=== PATIENT | male | born 1965 | race Caucasian/White ===

== ENCOUNTER → 2018-12-30 | Outpatient (CLI) | payer OTHER ==
--- NOTE | 2018-12-30 20:44 | CONS ---
CONSULTATION DATE OF SERVICE: 12/30/2018 This patient is a 53-year-old gentleman who has been [facility]uated [facility] for obstructive sleep apnea-hypopnea syndrome. HISTORY OF PRESENT ILLNESS/SLEEP-WAKE EVALUATION: The patient has history of extremely severe obstructive sleep apnea-hypopnea syndrome for about 10 years with apnea-hypopnea index 91.6 with extremely severe oxygen desaturation to 31%. Since that time, the patient has been on treatment with CPAP. The last time he was in our sleep clinic was in 2009. Since that time, his weight has significantly increased from 257 pounds to 279 pounds. His sleep schedule is from 10 p.m. until 5:30 or 6:30 a.m. He does have problems falling asleep. No TV in bedroom. At present, while he is using CPAP he snores and still has awakenings from sleep. He has episodes of restless legs and heartburn. During the day he may feel sleepiness. [place] Sleepiness Scale is increased at 10. He has episodes of irritability, depression, anxiety, sexual dysfunction, problems with memory. PAST MEDICAL HISTORY: Past medical history is positive for: 1. Exercise-induced asthma. 2. Back problems. 3. Diabetes mellitus. 4. Hypertension. 5. Periodic limb movements. MEDICATIONS: 1. Lisinopril. 2. . 3. Medications for diabetes. SOCIAL HISTORY: Negative for smoking or using alcohol at present. REVIEW OF SYSTEMS: Awakenings from sleep, tiredness and sleepiness during the day, even while using his CPAP. PHYSICAL EXAMINATION: GENERAL: A pleasant gentleman without distress. VITAL SIGNS: BP 147/101, HR 74, RR 16, height 5 feet 10 inches, weight 279, body mass index 40, temperature 97.4, oxygen saturation at room air 96% HEENT: PERRLA, EOMI. Evaluation of oropharynx showed tongue protrudes midline. Extremely low position of soft palate. Mallampati IV. NECK: Supple. No JVD. Thyroid is not palpable. Wide neck; 19-1/2 inches in circumference. LUNGS: Clear to percussion and to auscultation. Good air exchange. No wheezing or rhonchi. HEART: S1, S2 regular. No murmurs, gallops or rubs. ABDOMEN: Slightly obese. EXTREMITIES: No clubbing or cyanosis. TECHNICIAN ANATOMIC PATHOLOGY: Awake, alert, and oriented X3. Cranial nerves 2 to 7 intact. There is no fasciculation or atrophy. noted. No focal deficits observed. IMPRESSION: 1. Extremely severe obstructive sleep apnea-hypopnea syndrome with apnea-hypopnea index 91.6 and oxygen desaturation to 31%, documented in 2009. Last sleep study was 10 years ago. Patient's weight has increased by 22 pounds since previous sleep study. At present he is on treatment with CPAP but has snoring while using CPAP and tiredness and sleepiness during the day. He also has an extremely low position of soft palate, wide neck, obesity; obstructive sleep apnea-hypopnea syndrome. 2. Obesity; body mass index 40. 3. History of periodic limb movements. 4. History of exercise-induced asthma. 5. Back problems. 6. Diabetes mellitus. 7. Hypertension. PLAN: 1. Repeat CPAP titration for evaluation of effective CPAP pressure and fitting of the mask. 2. Aggressive losing-weight program. 3. Sleep hygiene with regular time in bed for 7-1/2 to 8 hours. 4. No driving if feeling any sleepiness. Thank you very much for allowing me to participate in the management of your patient. Sincerely, Dimas Armijo MD, PhD, FAASM Diplomat of [employer] [employer] [facility] MMODL / NICKIN: [phone] /
== END | disposition home or self-care (01) ==
LOC: SLEEP 14:09
PROVIDERS: ATTEND Internal Medicine
DX: G47.33 Obstructive sleep apnea (adult) (pediatric) (principal); E66.9 Obesity, unspecified; I10 Essential (primary) hypertension; E11.9 Type 2 diabetes mellitus without complications; R29.898 Other symptoms and signs involving the musculoskeletal system; Z68.41 Body mass index [BMI] 40.0-44.9, adult; Z99.89 Dependence on other enabling machines and devices; Z87.09 Personal history of other diseases of the respiratory system; Z87.898 Personal history of other specified conditions; Z79.899 Other long term (current) drug therapy
CPT/HCPCS: 99211

== ENCOUNTER 2020-05-04 13:43 | Emergency (ER) | payer OTHER ==
[2020-05-04 13:56] VITALS: BP 144/89; PULSE 90; TEMP 98.4
[2020-05-04] MEDS ORDERED: KETOROLAC 15 MG/ML 1 ML VIAL IM STA (14:29)
--- NOTE | 2020-05-04 14:45 | ED ---
General Adult HPI - General Chief complaint: Fall Stated complaint: Neck Pain, Fall 1 wk ago Time Seen by Provider: 05/04/20 13:58 Source: patient Mode of arrival: ambulatory Limitations: no limitations - History of Present Illness Initial comments: Patient is a 54-year-old male presenting to the emergency Department with complaints of ongoing neck pain after a fall 10 days ago. Patient states he missed the last 2 steps going down stairs and he fell onto his right knee, and then rolled onto his back. The patient states he did get an appointment with the [facility] after a few days and did have x-rays performed showing no acute process. Patient was prescribed Tylenol, Motrin, Flexeril, and steroids. Patient states he has taken this medication for the past week but feels like his neck pain has continued. Patient does admit to history of chronic neck pain but feels like this is worse than normal. He denies any numbness and tingling into his upper extremities. He denies any fever or chills. He states he was post to have a neck injection in March but missed the appointment. He has no further complaints at this time. Upon arrival to the ER, his vital signs are stable. - Related Data Previous Rx's Medication Instructions Recorded Ketorolac [Toradol] 10 mg PO Q8HR #8 tab 05/04/20 Allergies Allergy/AdvReac Type Severity Reaction Status Date / Time No Known Allergies Allergy Verified 05/04/20 15:28 Review of Systems ROS Statement: Those systems with pertinent positive or pertinent negative responses have been documented in the HPI. ROS Other: All systems not noted in ROS Statement are negative. Past Medical History Past Medical History: Diabetes Mellitus, Hypertension History of Any Multi-Drug Resistant Organisms: None Reported Past Surgical History: No Surgical Hx Reported Past Psychological History: Anxiety, Depression Smoking Status: Never smoker Past Alcohol Use History: None Reported Past Drug Use History: None Reported General Exam - General Exam Comments Initial Comments: GENERAL: Patient is well-developed and well-nourished. Patient is nontoxic and in no a cute distress. HEAD: Atraumatic, normocephalic. EYES: Pupils equal round and reactive to light, extraocular movements intact, sclera anicteric, conjunctiva are normal. Eyelids were unremarkable. ENT: TMs normal, nares patent, oropharynx clear without exudates. Moist mucous membranes. NECK: Mild midline tenderness with palpation, he has full active range of motion of the neck, tightness at the end ranges. Pain in the cervical paraspinals as well. Tightness at bilateral upper traps. supple without lymphadenopathy or JVD. LUNGS: Unlabored respirations. Breath sounds clear to auscultation bilaterally and equal. No wheezes rales or rhonchi. HEART: Regular rate and rhythm without murmurs, rubs or gallops. ABDOMEN: Soft, nontender, normoactive bowel sounds. No guarding, no rebound. No masses appreciated. : Deferred MUSCULOSKELETAL: Normal extremities with adequate strength and normal range of motion, no pitting or edema. No clubbing or cyanosis. NEUROLOGICAL: Patient is alert and oriented x 3. Motor and sensory are also intact. Cranial nerves II through XII grossly intact. Symmetrical smile. Normal speech, normal gait. PSYCH: Normal mood, normal affect. SKIN: Warm, Dry, normal turgor, no rashes or lesions noted. Limitations: no limitations Course Vital Signs 05/04/20 05/04/20 13:52 15:18 Temperature 98.4 F Pulse Rate 90 Respiratory 20 18 Rate Blood Pressure 144/89 Medical Decision Making - Medical Decision Making Patient is a 54-year-old male here for continued back pain after he fell 10 days ago. He fell down the to last steps going downstairs and fell onto his back. He did have x-rays and a workup done at the [facility] 3 days after the fall, no acute process was seen. He doesn't history of chronic neck pain, no cervical surgeries. His exam is unremarkable, no acute neuro deficits. He does have some mild midline tenderness of the cervical spine. CT of the cervical spine revealed no acute fractures dislocations. Patient was given Toradol the ER does report some improvement in his symptoms. Patient is stable for discharge. He can follow up with his regular doctors. I will give him a few tablets of Toradol to take at home. Return parameters were discussed with the patient he verbalizes understanding. Disposition Clinical Impression: Neck pain Disposition: HOME SELF-CARE Condition: Stable Instructions (If sedation given, give patient instructions): Muscle Spasm (ED) Additional Instructions: Please return to the Emergency Department if symptoms worsen or any other concerns. May take Toradol every 8 hours for increase in pain, do not take other anti- inflammatory such as Motrin or Aleve with this medication. Please follow-up with your regular doctor. Prescriptions: Ketorolac [Toradol] 10 mg PO Q8HR #8 tab Is patient prescribed a controlled substance at d/c from ED?: No Referrals: [facility],Clinic [Primary Care Provider] - 1-2 days
--- NOTE | 2020-05-04 15:15 | CT ---
EXAMINATION TYPE: CT cervical spine wo con DATE OF EXAM: 05/04/2020 COMPARISON: NONE HISTORY: Fall 10 days ago, continued neck pain. CT DLP: 687.8 mGycm. Automated Exposure Control for Dose Reduction was Utilized. TECHNIQUE: CT scan of the cervical spine is obtained without contrast, axial images are obtained, sa gittal and coronal reformatted images are also reviewed. FINDINGS: Cervical spine is visualized in its entirety from C1 through upper thoracic levels, demonst rates satisfactory alignment without evidence of acute fracture or dislocation. Prevertebral soft ti ssue appears within normal limits. The C1-C2 articulation is within normal limits on the coronal surendra ges. Vertebral body heights are maintained. Mild disc space narrowing C4-C5 level with [id number] te spurring. Posterior spur disc complex effacing the anterior thecal sac at C4-C5 level sagittal surendra ge 44 corresponding to axial image 68 were right paracentral component is present. There is mild-to-m oderate right-sided neural foraminal narrowing seen on axial images. Review of axial images shows no significant additional spinal canal stenosis or neural foraminal narr owing at any cervical level. Thyroid gland is felt within normal limits. Visualized lung apices are c lear. Mild to moderate calcified plaque bilateral carotid bulb level. IMPRESSION: There is no acute fracture or dislocation evident in the cervical spine.
[2020-05-04 15:52] VITALS: RESP 16
== END 2020-05-04 15:50 | disposition home or self-care (01) ==
LOC: EC 13:43
DX: M54.2 Cervicalgia (principal); W10.9XXA Fall (on) (from) unspecified stairs and steps, initial encounter; Y92.009 Unspecified place in unspecified non-institutional (private) residence as the place of occurrence of the external cause
CPT/HCPCS: 72125; 96372; 99283; J1885

== ENCOUNTER 2020-12-27 20:47 | Emergency (ER) | payer OTHER ==
[2020-12-27] MEDS ORDERED: lisinopriL 10 MG TAB PO STA (21:44)
[2020-12-27 21:45] VITALS: TEMP 98.5
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
[2020-12-27 23:46] VITALS: BP 157/99; PULSE 63; RESP 20
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
== END 2020-12-28 00:20 | disposition home or self-care (01) ==
LOC: EC 20:47
DX: S00.83XA Contusion of other part of head, initial encounter (principal); I10 Essential (primary) hypertension; E11.9 Type 2 diabetes mellitus without complications; Z79.84 Long term (current) use of oral hypoglycemic drugs; Z79.899 Other long term (current) drug therapy; Z88.5 Allergy status to narcotic agent; Y04.8XXA Assault by other bodily force, initial encounter
CPT/HCPCS: 70450; 99284